=== PATIENT | male | born 2000 | race Caucasian/White ===

== ENCOUNTER 2025-01-10 02:15 | Emergency (ER) | payer OTHER, SELFPAY ==
--- NOTE | ~2025-01-10 | XR_ITS ---
EXAMINATION: XR chest 2V DATE: 01/10/2025 03:05 INDICATION: Palpitations TECHNIQUE: PA and lateral views of the chest were obtained. COMPARISON: None FINDINGS: The lungs are clear with no focal airspace opacities, pulmonary edema, pleural effusion or pneumothor ax. The cardiomediastinal silhouette is normal. Mild thoracic dextrocurvature. IMPRESSION: 1. No acute cardiopulmonary disease. Reviewed, dictated and finalized at location A.
[2025-01-10 02:19] VITALS: PULSE 91; RESP 20; TEMP 36.3; O2SAT 100
--- NOTE | 2025-01-10 02:28 | ECG_ITS ---
Test Date: 2025-01-10 02:34:16 Measurements Intervals [place] Rate: 92 P: 29 MD: 150 QRS: 23 QRSD: 101 T: 0 QT: 335 QTc: 416 Interpretive Statements SINUS RHYTHM NONSPECIFIC T-WAVE ABNORMALITY- INFERIOR LEADS BASELINE ARTIFACT- I, II, AVR, AVF BORDERLINE ECG No previous ECG available for comparison Electronically Signed On 01-10-2025 07:22:43 CDT by Jay Pina D.O.
[2025-01-10 02:29] VITALS: BP 192/97; PULSE 93; RESP 16; TEMP 36.8; O2SAT 100
[2025-01-10 02:37] VITALS: RESP 18
[2025-01-10 02:46] LABS: Hematocrit 41.2 % (42.0-52.0); Hemoglobin 14.7 g/dL (14.0-18.0); Immature Granulocyte Percent A 0.3 % (0-0.5); Lymphocytes Absolute Auto 3.74 K/mm3 (0.9-3.2); Mean Corpuscular HGB Conc 35.7 g/dl (32-36); Mean Corpuscular Hemoglobin 30.4 pg (26-34); Mean Corpuscular Volume 85.1 fl (80-100); Nucleated Red Blood Cells Absolute Auto 0.000 K/mm3 (0.0-0.012); Nucleated Red Blood Cells Perc 0.0 % (0.0-0.2); Platelet Count Result 323 k/mm3 (150-375); Red Blood Count 4.84 M/mm3 (4.6-6.20); White Blood Count 9.3 K/mm3 (4.5-10.0)
[2025-01-10 02:56] LABS: INR 1.1; Prothrombin Time 14.2 Seconds (11.1-14.7)
[2025-01-10 02:57] LABS: Alanine Aminotransferase 46 U/L (6-50); Albumin Level 4.8 g/dL (3.5-5.1); Alkaline Phosphatase 80 U/L (38-126); Anion Gap 10 mmol/L (4-12); Aspartate Amino Transferase 34 U/L (17-59); Bilirubin,Total 0.6 mg/dL (0.2-1.3); Blood Urea Nitrogen 12 mg/dL (9-20); Calcium 9.5 mg/dL (8.4-10.2); Carbon Dioxide 25 mmol/L (22-30); Chloride 103 mmol/L (98-107); Estimated CRCL calculation 166 ml/min; Estimated Glomerular Filt Rate > 60; Glucose 142 mg/dL (65-110); Lipase 108 U/L (23-300); Partial Thromboplastin Time 31.6 Seconds (22.3-36.8); Potassium 3.3 mmol/L (3.4-5.0); Sodium 138 mmol/L (137-145); Total Protein 8.2 g/dL (6.3-8.2)
--- NOTE | 2025-01-10 03:01 | ED_ITS ---
HPI - General Adult General Chief complaint: Unspecified Stated complaint: i feel funny Time Seen by Provider: 01/10/25 02:32 History of Present Illness HPI narrative: 24-year-old male with no pertinent past medical history besides some mildly elevated blood pressure readings prior. He presents the emergency department with several different concerns and states he feels strange. He states he had some shortness of breath and feeling lightheaded as well as having pain in the right-sided upper back and into his jaw. Denies any traumatic injuries. States he has had some palpitations. Attributes the right-sided chest discomfort and palpitations to increased stress with caffeine and nicotine intake. States he has had significant amounts of caffeine after 400 mg today in addition to multiple nicotine dosages. This is not unusual for him and states this is a daily occurrence. Was otherwise in his normal state of health and does not take any prescription medications. Was told he had elevated blood pressures prior but is not on any antihypertensives. Related Data Allergies Allergy/AdvReac Type Severity Reaction Status Date / Time No Known Allergies Allergy Verified 01/10/25 02:31 Review of Systems 2 Review of Systems: As reviewed above in HPI Exam 2 Narrative: GENERAL: [Well-appearing, well-nourished, and in no acute distress.] HEAD: [Normocephalic, atraumatic.] EYES: [PERRLA and EOMI.] ENT: Nares clear, no rhinorrhea or epistaxis. Mucous membranes moist. NECK: Supple. CHEST: [Clear to auscultation. No respiratory distress.] HEART: [Regular rate and rhythm]. No murmur heard. [Normal peripheral pulses.] ABDOMEN: [Soft, nondistended], [nontender], [No rigidity or guarding] EXTREMITIES: Normal range of motion. [No edema.] SKIN: Warm, dry, no rash. NEURO: [No focal deficits]. Alert and oriented [x3.] PSYCH: [Normal mood and affect.] Course Vital Signs Vital signs: Vital Signs Temperature 36.3 C L 01/10/25 02:19 Pulse Rate 91 01/10/25 02:19 Respiratory Rate 20 01/10/25 02:19 Pulse Oximetry 100 01/10/25 02:19 Oxygen Delivery Room Air 01/10/25 02:19 Temperature 36.8 C 01/10/25 02:29 Pulse Rate 72 01/10/25 05:33 Respiratory Rate 19 01/10/25 05:33 Blood Pressure 124/66 01/10/25 05:33 Pulse Oximetry 98 01/10/25 05:33 Oxygen Delivery Room Air 01/10/25 02:29 Medical Decision Making MDM Narrative Medical decision making narrative: 24-year-old male with no pertinent past medical history besides some mildly elevated blood pressure readings prior. He presents the emergency department with several different concerns and states he feels strange. He states he had some shortness of breath and feeling lightheaded as well as having pain in the right-sided upper back and into his jaw. Denies any traumatic injuries. States he has had some palpitations. Attributes the right-sided chest discomfort and palpitations to increased stress with caffeine and nicotine intake. States he has had significant amounts of caffeine after 400 mg today in addition to multiple nicotine dosages. This is not unusual for him and states this is a daily occurrence. Was otherwise in his normal state of health and does not take any prescription medications. Was told he had elevated blood pressures prior but is not on any antihypertensives. Patient is overall very well-appearing not any acute distress. He has normal vital signs here aside from the elevated blood pressure reading. Blood pressure 192/97 in his left arm. This was repeated in his right arm with some small decreased to 168 systolic. Give the differences in his blood pressure cuffs of further investigation was indicated this time to assess for potential thromboembolic disease or less likely aortic syndrome. He has no classical risk factors and overall well-appearing. Strong symmetric pulses in all limbs with warm extremities. Troponin and dimer ordered for further evaluation, chest x- ray, EKG and laboratory studies obtained. Patient placed on continuous pulse oximetry and color television console monitor. Patient was observed for several hours and had complete normalization of his vital signs and no longer having any symptoms. Normal blood pressure 124/66, no tachycardia or fever, hypoxemia. Blood pressure checked multiple times and still normal. Dimer negative, troponin negative, delta troponin negative, electrolytes are normal. EKG without any ischemic changes. Given patient's lack of symptoms he likely had some symptoms earlier from his elevated blood pressure secondary to caffeine and nicotine abuse. No longer having any symptoms and safe for discharge home at this time. Given return precautions and PCP to follow up with. Medical Records Medical records reviewed: Yes I reviewed the external patient's medical records. Vital Signs Vital Signs: Vital Signs Temperature 36.3 C L 01/10/25 02:19 Pulse Rate 91 01/10/25 02:19 Respiratory Rate 20 01/10/25 02:19 Pulse Oximetry 100 01/10/25 02:19 Oxygen Delivery Room Air 01/10/25 02:19 Temperature 36.8 C 01/10/25 02:29 Pulse Rate 72 01/10/25 05:33 Respiratory Rate 19 01/10/25 05:33 Blood Pressure 124/66 01/10/25 05:33 Pulse Oximetry 98 01/10/25 05:33 Oxygen Delivery Room Air 01/10/25 02:29 Lab Data Lab results reviewed: Yes I reviewed the patient's lab results. 01/10/25 02:39 01/10/25 02:38 Labs: Lab Results 01/10/25 01/10/25 01/10/25 Range/Units 02:38 02:39 05:19 WBC 9.3 (4.5-10.0) K/mm3 RBC 4.84 (4.6-6.20) M/mm3 Hgb 14.7 (14.0-18.0) g/dL Hct 41.2 L (42.0-52.0) % MCV 85.1 (80-100) fl MCH 30.4 (26-34) pg MCHC 35.7 (32-36) g/dl RDW 11.6 (11.5-14.5) % Plt Count 323 (150-375) k/mm3 MPV 9.0 (7.4-10.4) fl Immature Gran % (Auto) 0.3 (0-0.5) % Neut % (Auto) 48.0 (45.5-73.1) % Lymph % (Auto) 40.3 (18.3-44.2) % [place] % (Auto) 7.4 (2.6-8.5) % Eos % (Auto) 3.5 (0-4.4) % Baso % (Auto) 0.5 (0.2-1.2) % Lymph # (Auto) 3.74 H (0.9-3.2) K/mm3 [place] # (Auto) 0.7 H (0.1-0.6) K/mm3 Eos # (Auto) 0.3 (0-0.3) K/mm3 Baso # (Auto) 0.1 (0.0-0.1) K/mm3 Abs Immat Gran (auto) 0.03 (0.00-0.031) K/mm3 Absolute Neuts (auto) 4.4 (1.3-6.7) K/mm3 Absolute Nucleated RBC 0.000 (0.0-0.012) K/mm3 Nucleated RBC % 0.0 (0.0-0.2) % PT 14.2 (11.1-14.7) Seconds INR 1.1 APTT 31.6 (22.3-36.8) Seconds D-Dimer < 0.27 (<0.48) ug/mL Sodium 138 (137-145) mmol/L Potassium 3.3 L (3.4-5.0) mmol/L Chloride 103 (98-107) mmol/L Carbon Dioxide 25 (22-30) mmol/L Anion Gap 10 (4-12) mmol/L BUN 12 (9-20) mg/dL Creatinine 0.89 (0.7-1.3) mg/dL Estim Creat Clear Calc 166 ml/min Estimated GFR > 60 (59 - ) Glucose 142 H (65-110) mg/dL Calcium 9.5 (8.4-10.2) mg/dL Total Bilirubin 0.6 (0.2-1.3) mg/dL AST 34 (17-59) U/L ALT 46 (6-50) U/L Alkaline Phosphatase 80 (38-126) U/L Troponin I < 0.012 < 0.012 (0.000-0.034) ng/mL Total Protein 8.2 (6.3-8.2) g/dL Albumin 4.8 (3.5-5.1) g/dL Lipase 108 (23-300) U/L Imaging Data Attestation: I personally reviewed and interpreted this imaging study as follows: My impression: No acute abnormality Discharge Plan Discharge Clinical Impression: Chest pain Patient Disposition: Home Condition: Stable Instructions: Antibiotic Form, Chest Pain (DC) Additional Instructions: All of your labs and imaging are normal. Follow-up with regular doctor. Likely symptoms secondary to caffeine and nicotine causing elevated blood pressure readings. Symptoms subsided without any interventions. Follow-up with the doctors and return with any emergent concerns. Patient Language: [place] Follow-up/Referrals: Don Davila MD [Physician] - 1 Week (PCP) PHYSICIAN,SHAPE BRICK MOLDER [Primary Care Provider] - Time of Disposition: 06:15
[2025-01-10 03:06] VITALS: BP 168/86; BP 192/97; PULSE 93; PULSE 99; RESP 16; RESP 17; O2SAT 98; O2SAT 99
[2025-01-10 03:08] LABS: Troponin I < 0.012 ng/mL (0.000-0.034)
--- NOTE | 2025-01-10 05:03 | ECG_ITS ---
Test Date: 2025-01-10 05:08:46 Measurements Intervals [place] Rate: 57 P: 10 GA: 158 QRS: 25 QRSD: 94 T: -1 QT: 392 QTc: 384 Interpretive Statements SINUS BRADYCARDIA ST ELEVATION IN DIFFUSE LEADS- PROBABLY EARLY REPOLARIZATION ABNORMALITY BASELINE ARTIFACT- I, III BORDERLINE ECG Compared to ECG 01/10/2025 02:34:16 HEART RATE HAS DECREASED Electronically Signed On 01-10-2025 07:24:05 CDT by Jay Pina D.O.
[2025-01-10 05:33] VITALS: BP 124/66; PULSE 72; RESP 19; O2SAT 98
[2025-01-10 05:48] LABS: Troponin I < 0.012 ng/mL (0.000-0.034)
[2025-01-10 06:27] VITALS: BP 126/69; PULSE 60; RESP 16; O2SAT 98
== END 2025-01-10 06:29 | disposition home or self-care (01) ==
PROVIDERS: Emergency Provider Student in an Organized Health Care Education/Training Program
DX: R07.9 Chest pain, unspecified (principal); R94.31 Abnormal electrocardiogram [ECG] [EKG]; R00.1 Bradycardia, unspecified
CPT/HCPCS: 36415; 71046; 80053; 83690; 84484; 85025; 85380; 85610; 85730; 93005; 99284